=== PATIENT | female | born 2000 ===

== ENCOUNTER 2021-03-06 09:30 | Outpatient (RCR) | payer OTHER, SELFPAY ==
--- NOTE | 2021-02-21 11:36 | PC.ADMIT ---
Patient is a 20 year old female who self referred to the [facility] program d/t an increase in depression and anxiety sxs and increased ETOH use. Per records patient reports depressive symptoms in the 7th grade and starting seeing a psychiatrist at age 12. Patient reports that her parents are currently going through a divorce and her father is living in [place] and mother and sister recently moved to [facility] where patient is currently staying. Patient also reports picking scabs on her ankles. Patient is taking a leave of absence from work to work on her mental health and substance use. Patient is staying with her mother for the duration of treatment and will be going back to [place] where patient is living. Patient reports she last used ETOH 2 weeks ago. Denied any withdrawal sxs. Reports primarily drinking on the weekends -Thursday. Stated at times she would not drink at all and other times between 2-5 drinks and at her peak she drank 10 drinks one time a month. Patient has a history of cutting self, last cut in 2019. Patient reports poor sleep and appetite. Presents with depressed mood and affect. Patient reports hx of passive SI however reported none currently. Patient reports a weird relationship with food and is conscious of her weight and not wanting to gain weight. Patient is alert and oriented x4. Calm and cooperative. Appears motivated for treatment. Medications reconciled with patient and patient's pharmacy. Reports taking medications as prescribed.
[2021-02-21 11:48] VITALS: BMI 20.3
--- NOTE | 2021-02-21 14:37 | PC.NURSE ---
Case opened in treatment team.
--- NOTE | 2021-02-21 16:43 | HO.PS.ADMBH ---
[facility] Date of Service: 02/21/21 Chief Complaint: Depression, Anxiety, Substance Abuse Sources of Information: patient interviewed, chart reviewed and crisis/core team assessment reviewed [facility] Guardianship: No Medical Problems Affecting Mental Status: No Narrative: Client is a 20-year-old single female, self-referred to [facility] for symptoms of increased depression, increased anxiety, and increased alcohol use. She recently graduated from college, and lives with several roommates. She has also been in a relationship for several years with a boyfriend. She has taken a leave from work, and is currently staying with her mother and a younger sister locally. She describes her roommate, boyfriend, and family as supportive. Her parents are , but she describes a good relationship with her father as well. She reports that she 1st began to experience symptoms of anxiety ?as long as I can remember ?. She states that she noticed it especially in middle school (7th grade), and that it got worse when she was a sophmore in college. She 1st started therapy at age 12. She has engaged in SI be in the past, and also endorses passive SI. She denies any plan or intent at this time. She did describes symptoms of depression including anhedonia, guilt, decreased energy, poor concentration, poor motivation, poor appetite. Reports anxiety symptoms of feeling nervous, difficulty relaxing. Denies any type of symptoms of bipolar disorder either current or in her past. She reports a history of compulsive thoughts, intrusive at times, especially at bedtime. She explains that they used to be dark, such as what would happen if she were and fell on the sidewalk in injured her unborn child. She explains that since she has been receiving duloxetine these type of intrusive thoughts have subsided, although she continues with intrusive thoughts regarding more benign topics such as redecorating her apartment. She has a script for lorazepam p.r.n., and that she utilizes them after drinking for a day or 2. She also has had panic attacks, and reports that she noticed them especially after drinking. She describes periods of time where she has had much difficulty with her alcohol use, and has had various amounts of use approximately 4 times per week, anywhere from 2-10 drinks. She states that she did have a brief period of sobriety for 2 months in the summer of 2018. Her last alcohol consumption was approximately 2 weeks ago. She also has used marijuana 1-2 times weekly since age of 13, with last use 3 days ago. Med trials: Lexapro, did not like sexual side effects. Wellbutrin, made her feel anxious. Another medication, made her feel tired, does not remember name. She currently has a psychiatric provider. She is currently taking Cymbalta, which she describes as effective in helping to manage symptoms of anxiety, obsessive thoughts. Utilizes p.r.n. lorazepam 0.5 for anxiety. Client met developmental milestones as expected, graduated high school, recent leak graduated from college. History of asthma when she was a child, has since resolved. Past Psychiatric History: Therapy since age 12. No IPLOC, no PHP. Has current psychiatric provider. Medical Evaluation Reviewed: No (None available at this time.) [facility] Medical History No known health problems Surgical History History of tonsillectomy Hx of adenoidectomy Family History: Familial history of alcohol use disorder, both sides. Familial history of anxiety and depression, both sides. Social History: Raised by parents with younger sister. Parents , describes good relationship with both parents and sibling. Met all developmental milestones as expected. Graduated high school, college. Boyfriend for past 2 years. Substance History: Extensive use of alcohol since age 13, with brief episode of sobriety in 2019. Was consuming between 2-10 drinks 4 times per week, last use 2 weeks ago. Cocaine use 1 time October 2020. Marijuana use several times weekly since age 13, last use 3 days ago. Trauma History: None reported. Diagnostics Vital Signs (24Hr): BMI result Body Mass Index 20.3 Meds/Allergies Allergies Allergies Allergy/AdvReac Type Severity Reaction Status Date / Time No Known Allergies Allergy Verified 02/21/21 14:14 Mental Status Exam Mental Status Exam Narrative: Well-developed, well-nourished female, in NAD. No evidence of any type withdrawals or cravings noted. No involuntary movements noted, motor activity calm, posture within normal limits. Ambulation not observed. Patient Appearance: Well Grooomed and Appropriate Patient Orientation: Person, Place, Time and Situation Level of Consciousness: Awake, Appropriate and Alert Patient Behavior: Appropriate, Cooperative and Good Eye Contact Mood Description: Appropriate and Anxious Affect Description: Appropriate, Depressed and Anxious Patient Cognition Impaired: No Ability to Follow Directions: Excellent Speech Pattern: Clear, Appropriate, Spontaneous Speech and Coherent (Speech articulate, normal rate and volume.) Memory Description: Intact Hallucinations: None Delusions: Not Present Thought Process: Intact, Goal Oriented and Linear Thought Content: positive for Intact, positive for Obsessional Thoughts, positive for Goal Oriented, positive for Preoccupation and positive for Suicidal Ideation (Passive, no plan, no intent.) Depressive Symptoms: Increased Anxiety, Diff. Making Decisions, Difficulty Sleeping, Changes in Appetite, Loss of Int. in Activity, Feelings of Guilt, Unhappiness, Thoughts of /Suicide and Difficulty Concentrating Judgement: Fair Telehealth Telehealth Location of provider rendering services: practice address Location of patient: address on file Patient Identification confirmed using: Name, : Yes Telehealth method: video Patient verbally consented to treatment: Yes Patient verbally consented to billing insurance company: Yes Patient informed of any privacy concerns related to visit: Yes Time spent with patient (mins): 45 Assessment & Plan Assessment & Plan (1) Alcohol use disorder, severe, dependence: Status: Acute Code(s): F10.20 - Alcohol dependence, uncomplicated Assessment and Plan: Client has longstanding pattern of alcohol use disorder, with brief intermittent periods of sobriety. Was drinking anywhere from 2-10 drinks 4 times weekly, started at age 13. Last used approximately 2 weeks ago. Describes pattern of use that has interfered with daily functioning. Client denies any type of withdrawals over the past 2 weeks. Does describe history of periods of increased anxiety intermittently the day or 2 after she stops drinking, utilizes p.r.n. lorazepam during those times. Client was open to discussing treatment for alcohol use disorder, including possible medications such as a camper safe or naltrexone. She reports that she is not currently experiencing cravings to the extent where she would want a medication, but will consider this. She has not attended any type of support groups such as alcoholics anonymous, [address], woman in recovery, etc.. Various types of support were discussed, as well as considering reasons for continued use or cessation. Client was encouraged to attend 12 step recovery meetings, including online as well as possible in-person meetings. She was provided with resources regarding options. She stated that she would research the resources and would attend a meeting. (2) SUDHAKAR (generalized anxiety disorder): Status: Acute Code(s): F41.1 - Generalized anxiety disorder Assessment and Plan: Client reports ongoing anxiety since she was a child. Reports that the medication duloxetine is helping to address both anxiety and depression symptoms. She is satisfied with current dose, and is hoping to learn healthy coping skills while participating in this PHP, rather than add any further medications. A discussion was held regarding obsessive thoughts, obsessive compulsive disorder. She reports that medication regimen is currently helping with intrusive obsessional thoughts at this time. Although she continues with some obsessional thoughts, they are more benign in nature, and she feels comfortable with this. Education was provided regarding relationship of alcohol use and anxiety disorder, including self medicating, panic, etc.. She reports that use of p.r.n. lorazepam is minimal. (3) MDD (major depressive disorder), recurrent episode, severe: Status: Acute Qualifiers: Psychotic features: without psychotic features Qualified Code(s): F33.2 - Major depressive disorder, recurrent severe without psychotic features Code(s): F33.2 - Major depressive disorder, recurrent severe without psychotic features Assessment and Plan: Client has had symptoms of depression including difficulty with sleep, changes in energy, poor concentration, poor appetite, anhedonia, guilt, passive SI. She denies any plan or intent regarding SI at this time. (4) History of OCD (obsessive compulsive disorder): Status: Acute Code(s): Z86.59 - Personal history of other mental and behavioral disorders Assessment and Plan: Client currently being treated for intrusive obsessional thoughts along with major depressive disorder and anxiety, with positive effect. Assessment and Plan: 1. Continue with current medication regimen as prescribed by outpatient provider. 2. Continue to offer support and education regarding anxiety, depression management, alcohol use disorder, and OCD symptoms. 3. Follow-up as per protocol. Patient educated on: diagnosis, medication risk/benefits, substance abuse and therapeutic strategies Informed Consent: understands and further education needed Reason for continued partial hosp. stay Substantial Risk for: harm to self, inability to function and med/psych decompensation Certification I certify that partial hospital treatment is medically necessary due to the symptoms and problems resulting from the patient's mental illness and the failure to treat the patient at the partial hospital level of care would likely result in the patient requiring inpatient psychiatric care which could not be prevented at a less intensive level of care.
--- NOTE | 2021-02-25 15:48 | PC.NURSE ---
I called and spoke with pt. She says the program is going well for her, and she feels quite supported. She is planning on discharging on 03/06, after 10 days of tx, then will return to work in [place] ([place]). She has been actively looking for a therapist in [place], using [employer], and has identified several therapists who have called her back. I let her know about the option of a substance use IOP, and the possibility of there being an evening program in [place] as there is in [place]. I offered to research this and local community mental health agencies and pt declined this for now. She said she'd let me know if she wants help. We also discussed [email or web address], [facility], [email or web address], and Depression-bipolar support alliance groups.
--- NOTE | 2021-02-27 16:44 | P.PNPSP_ITS ---
Subjective Subjective Date of Service: 02/27/21 Reason For Visit: Depression, Anxiety, Substance Abuse Guardianship: No Medical Problems Affecting Mental Status: No Interim History: Client reports ?I am okay, I am pretty well?. Does report she has been having some feelings of dissociation at times, and obsessive thought at times. States that she finds herself unable to focus and be more goal oriented, with low motivation at times during the day. Asking for medication to help with ?clarity ?. Medication Compliance: Yes Side effects from medications: No Attending Groups: Yes Review of Systems Acute medical concerns: No Medical Review of Systems: unchanged Review of Systems Review of Systems Yes all other systems are reviewed and are negative Constitutional: Reports no additional constitutional complaints Mental Status Exam Mental Status Exam Narrative: Well-developed, well-nourished female, in NAD. No involuntary movements noted, motor activity calm, posture within normal limits. Patient Appearance: Well Grooomed and Appropriate Patient Orientation: Person, Place, Time and Situation Level of Consciousness: Awake, Appropriate and Alert Patient Behavior: Appropriate, Cooperative and Good Eye Contact Mood Description: Appropriate and Anxious Affect Description: Appropriate, Depressed and Anxious Patient Cognition Impaired: No Ability to Follow Directions: Excellent Speech Pattern: Clear, Appropriate, Spontaneous Speech and Coherent Memory Description: Intact Hallucinations: None Delusions: Not Present Perceptual Disturbances: Depersonalization Thought Process: Intact, Goal Oriented and Linear Thought Content: positive for Intact, positive for Obsessional Thoughts, positive for Goal Oriented, positive for Preoccupation and positive for Suicidal Ideation (Passive, no plan, no intent.) Depressive Symptoms: Increased Anxiety, Diff. Making Decisions, Loss of Int. in Activity, Feelings of Guilt, Unhappiness, Thoughts of /Suicide and Difficulty Concentrating Judgement: Fair Diagnostics Vital Signs (24Hr): BMI result Body Mass Index 20.3 Assessment & Plan Assessment & Plan (1) History of OCD (obsessive compulsive disorder): Status: Acute Code(s): Z86.59 - Personal history of other mental and behavioral disorders Assessment and Plan: Client reports having increased obsessive-OCD type thoughts. Also reports feeling dissociative at times, states I want my mind to feel clear . Willing to consider medication changes at this time. Client has not done well with BuSpar in the past or Wellbutrin. We discussed adding a low-dose atypical antipsychotic in order to help with clarity and grounding. She was agreeable to this. (2) MDD (major depressive disorder), recurrent episode, severe: Qualifiers: Psychotic features: without psychotic features Qualified Code(s): F33.2 - Major depressive disorder, recurrent severe without psychotic features Status: Acute Code(s): F33.2 - Major depressive disorder, recurrent severe without psychotic features Assessment and Plan: Client continues with duloxetine as prescribed. Client has had passive SI on going, no intent or plan, no safety concern. (3) SUDHAKAR (generalized anxiety disorder): Status: Acute Code(s): F41.1 - Generalized anxiety disorder Assessment and Plan: Client reports increased anxiety with OCD type symptoms. Willing to trial low- dose atypical antipsychotic in order to help with clarity, grounding. We discussed using quetiapine, as it also can help with anxiety. She was agreeable. (4) Alcohol use disorder, severe, dependence: Status: Acute Code(s): F10.20 - Alcohol dependence, uncomplicated Assessment and Plan: 1. Add quetiapine 25 mg in a.m., with 25 mg in afternoon as p.r.n. for anxiety. Client was advised that if 25 mg in the morning is too sedating, she can break tablet in half. Will reassess during next encounter. 2. Follow-up as per protocol. Patient educated on: diagnosis, medication risk/benefits, substance abuse and therapeutic strategies Informed Consent: understands Reason for contiued partial hosp. stay Substantial Risk for: inability to function and med/psych decompensation Certification I certify that partial hospital treatment is medically necessary due to the symptoms and problems resulting from the patient's mental illness and the failure to treat the patient at the partial hospital level of care would likely result in the patient requiring inpatient psychiatric care which could not be prevented at a less intensive level of care. I spent minutes with the patient and/or on the patient floor today, greater than?50% of which was spent counseling/coordinating care. Discharge Plan Discharge Attending provider: Harman Fan Medications: New quetiapine 25 mg tablet 25 mg PO BID Qty: 14 RF: 0 No Action lorazepam 0.5 mg Tablet 0.5 mg PO DAILY PRN (Reason: Anxiety) RF: 0 duloxetine 30 mg Capsule,Delayed Release(Dr/Ec) 30 mg PO DAILY RF: 0 duloxetine 60 mg Capsule,Delayed Release(Dr/Ec) 60 mg PO DAILY RF: 0 Telehealth Telehealth Location of provider rendering services: practice address Location of patient: address on file Patient Identification confirmed using: Name, : Yes Telehealth method: video Patient verbally consented to treatment: Yes Patient verbally consented to billing insurance company: Yes Patient informed of any privacy concerns related to visit: Yes Time spent with patient (mins): 15
--- NOTE | 2021-03-06 15:50 | HO.PHPPROGNO ---
Subjective Subjective Date of Service: 03/06/21 Reason For Visit: Depression, Anxiety, Substance Abuse Guardianship: No Medical Problems Affecting Mental Status: No Interim History: Lucy reports feeling good today, and describes her mood futher by stating I'm tired, with a low amount of energy right now, but otherwise neutral. She reports she has not been taking the quetiapine as prescribed, as it was making her feel too tired. We discussed the medication, she states that she may try taking it at night, but is not sure. She reports that she has an appointment with her outpatient provider later today, and they will discuss medications going further. Today is her last day in [facility], and she feels she is ready to complete the program. No SI, no safety concern. She has the next week and a half off from work. She states that she is happy about this as it will give her time to acclimate back to her apartment before she starts her daily work routine again. She reports that she feels she has gained some perspective and healthy coping skills while here. Medication Compliance: Intermittent Side effects from medications: Yes (Sedation from quetiapine.) Attending Groups: Yes Review of Systems Acute medical concerns: No Medical Review of Systems: unchanged Review of Systems Review of Systems Yes all other systems are reviewed and are negative Constitutional: Reports no additional constitutional complaints Mental Status Exam Mental Status Exam Narrative: Well-developed, well-nourished female, in NAD. No involuntary movements noted, motor activity calm, posture within normal limits. Patient Appearance: Well Grooomed and Appropriate Patient Orientation: Person, Place, Time and Situation Level of Consciousness: Awake, Appropriate and Alert Patient Behavior: Appropriate, Cooperative and Good Eye Contact Mood Description: Calm and Appropriate Affect Description: Calm and Appropriate Patient Cognition Impaired: No Ability to Follow Directions: Excellent Speech Pattern: Clear, Appropriate, Spontaneous Speech and Coherent Memory Description: Intact Hallucinations: None Delusions: Not Present Perceptual Disturbances: Depersonalization Thought Process: Intact, Goal Oriented and Linear Thought Content: positive for Intact, positive for Obsessional Thoughts, positive for Goal Oriented, positive for Preoccupation and positive for Suicidal Ideation (Passive, no plan, no intent.) Judgement: Good Diagnostics Vital Signs (24Hr): BMI result Body Mass Index 20.3 Assessment & Plan Assessment & Plan (1) MDD (major depressive disorder), recurrent episode, severe: Qualifiers: Psychotic features: without psychotic features Qualified Code(s): F33.2 - Major depressive disorder, recurrent severe without psychotic features Status: Acute Code(s): F33.2 - Major depressive disorder, recurrent severe without psychotic features Assessment and Plan: Client reports overall feeling neutral. Reports she feels she is ready to discharge from [facility], and return home to her apartment after the holidays. Denies SI, no safety concern. Stopped quetiapine on her own, due to feeling sedated. May consider continuing it at nighttime, as it has helped her fall sleep. She continues to take other medications as prescribed, including lorazepam, duloxetine. (2) SUDHAKAR (generalized anxiety disorder): Status: Acute Code(s): F41.1 - Generalized anxiety disorder (3) Alcohol use disorder, severe, dependence: Status: Acute Code(s): F10.20 - Alcohol dependence, uncomplicated Assessment and Plan: Client reports she continues to abstain from alcohol, plans to attend meetings when home. (4) History of OCD (obsessive compulsive disorder): Status: Acute Code(s): Z86.59 - Personal history of other mental and behavioral disorders Assessment and Plan: 1. Client appears stable for discharge from [facility]. 2. Client to follow up with her outpatient psychiatric provider going forward. Patient educated on: diagnosis, medication risk/benefits and therapeutic strategies Informed Consent: understands Reason for contiued partial hosp. stay Substantial Risk for: stable for discharge Certification I certify that partial hospital treatment is medically necessary due to the symptoms and problems resulting from the patient's mental illness and the failure to treat the patient at the partial hospital level of care would likely result in the patient requiring inpatient psychiatric care which could not be prevented at a less intensive level of care. I spent minutes with the patient and/or on the patient floor today, greater than?50% of which was spent counseling/coordinating care. Discharge Plan Discharge Attending provider: Harman Fan Medications: New quetiapine 25 mg tablet 25 mg PO BID Qty: 14 RF: 0 No Action lorazepam 0.5 mg Tablet 0.5 mg PO DAILY PRN (Reason: Anxiety) RF: 0 duloxetine 30 mg Capsule,Delayed Release(Dr/Ec) 30 mg PO DAILY RF: 0 duloxetine 60 mg Capsule,Delayed Release(Dr/Ec) 60 mg PO DAILY RF: 0 Stand Alone Forms: Patient Portal Discharge page Telehealth Telehealth Location of provider rendering services: practice address Location of patient: address on file Patient Identification confirmed using: Name, : Yes Telehealth method: video Patient verbally consented to treatment: Yes Patient verbally consented to billing insurance company: Yes Patient informed of any privacy concerns related to visit: Yes Time spent with patient (mins): 15
--- NOTE | 2021-03-07 12:08 | PC.NURSE ---
Discharge note: Patient discharged from [facility] on 03/06 2021. Patient seen by [facility]CR[facility] OPERATOR on day of discharge for medication review. Patient reports she is ready for discharge, denies SI. Reviewed discharge plan, patient states understanding.
== END 2021-03-07 07:06 | disposition home or self-care (01) ==
LOC: HO.PHPA 09:30
PROVIDERS: Visit Provider Psychiatry & Neurology Psychiatry
DX: F33.2 Major depressive disorder, recurrent severe without psychotic features (principal); F41.1 Generalized anxiety disorder; F10.20 Alcohol dependence, uncomplicated; Z86.59 Personal history of other mental and behavioral disorders
CPT/HCPCS: 90791; 90853